=== PATIENT | female | born 1965 | race Caucasian/White ===

== ENCOUNTER 2016-10-20 12:00 | Inpatient (IN) | payer OTHER ==
--- NOTE | 2016-10-17 08:42 | HP ---
DATE: 10/20/16 ANTICIPATED PROCEDURE: 1. ABDOMINAL EXPLORATION. 2. REMOVAL OF ABDOMINOPELVIC MASS. 3. SHE ALSO INCIDENTALLY HAS A LARGE VENTRAL HERNIA. HISTORY OF PRESENT ILLNESS: Patient has large ventral hernia. She has a large tissue mass which could be a fibroid on the vaginal stump and then she has a hollow area overlying the left tube area and overlying a fairly large varicosity. This is all going to require an inspection and treatment as indicated. She has had a bowel prep. Operation is anticipated to take in the 2 hour range. PAST MEDICAL HISTORY: ALLERGIES: NONE. CURRENT MEDICATIONS: Amlodipine, Bystolic, losartan, potassium. SURGERIES: X 2, hysterectomy, oophorectomy. SOCIAL HISTORY: Negative. FAMILY HISTORY: Negative. REVIEW OF SYSTEMS: Hypertension. PHYSICAL EXAMINATION: Vital signs normal. CHEST: Clear. COR: Regular. ABDOMEN: There are multiple lower abdominal hernias. PLAN: Exploration and treatment as indicated requiring completion of removal of any gynecological structures and mass and repair hernia as possible.
[~2016-10-20 12:00] MED LIST: BRIDION 200MG/2ML IV ONE; DIPRIVAN 200 MG/20 ML IV ONE; EPINEPHRINE 1:1000 1 ML AMP IV ONE; Lactated Ringers 1,000 ML IV ONE; Naropin 0.5% 30 ML VIAL IJ ONE; SUBLIMAZE 250 MCG/5 ML IV ONE; Versed 2 MG/2 ML Injection IV ONE; Zemuron 100 MG/10 ML IV ONE; Zofran 4 MG/2 ML VIAL IV ONE
[2016-10-20] MEDS ORDERED: Lactated Ringers 1,000 ML IV SCH (14:30)
[2016-10-20] MEDS ORDERED: CEFAZOLIN 2 GM-D5W BAG** 2 GM/50 ML ML IV SCH (15:00)
[2016-10-20] MEDS ORDERED: Valium 5 MG PO ONE (15:45)
[2016-10-20] MEDS ORDERED: Lactated Ringers 1,000 ML IV ONE ×2 (17:16→18:49)
[2016-10-20] MEDS ORDERED: TORAdol 30 mg Injection ONE (17:54)
[2016-10-20] MEDS ORDERED: xanAX 0.5 MG PO PRN ×3 (18:40→19:19)
[2016-10-20] MEDS ORDERED: MORPHINE SULFATE 4 MG INJ IV PRN ×2 (18:41→19:19)
[2016-10-20] MEDS ORDERED: NORCO 5/325 MG PO PRN (18:42)
[2016-10-20] MEDS ORDERED: Zofran 4 MG/2 ML VIAL IV PRN ×2 (18:42→19:19)
[2016-10-20] MEDS: NORCO 5/325 MG PO PRN (22:55)
[2016-10-21] MEDS: NORCO 5/325 MG PO PRN ×4 (04:28→19:24)
[2016-10-21 09:25] LABS: Collection Type VOID; Ph 5.5 (5-6)
[2016-10-21 09:26] LABS: COMPLETE URINE MICROSCOPIC? YES
[2016-10-21 09:28] LABS: Bacteria MODERATE /HPF (NEGATIVE); Epithelial Cells MODERATE /HPF (FEW); Mucus MANY /HPF (NEGATIVE)
[2016-10-21] MEDS ORDERED: BABY ASPIRIN 81 MG CHEW PO SCH (10:00)
[2016-10-21] MEDS ORDERED: NON-FORMULARY ITEM (Ranitidine Hcl [Zantac] 150 MG) PO SCH (10:00)
[2016-10-21] MEDS ORDERED: NON-FORMULARY ITEM (Escitalopram Oxalate [Lexapro] 20 MG) PO SCH (10:00)
[2016-10-21] MEDS: Mobic 7.5 MG PO SCH (10:04)
[2016-10-21] MEDS: Zocor 10MG PO SCH (10:04)
[2016-10-21] MEDS: ECOTRIN 81 MG PO SCH (10:04)
[2016-10-21] MEDS: Pepcid 20 MG PO SCH (10:04)
[2016-10-21] MEDS: VITAMIN D PO SCH (10:04)
[2016-10-21] MEDS: Lexapro 10 MG PO SCH (10:05)
[2016-10-21] MEDS: NORVASC 5 MG PO SCH (10:08)
[2016-10-21] MEDS: Cozaar 50 MG PO SCH (10:09)
--- NOTE | 2016-10-21 10:59 | OP ---
THIS REPORT WAS AMENDED ON 10/21/16. SURGERY DATE: 10/20/16 SURGERY TIME: 1554 PREOPERATIVE DIAGNOSIS: 1. PELVIC MASS. 2. VENTRAL HERNIA. POSTOPERATIVE DIAGNOSIS: 1. FAIRLY MINIMAL PELVIC MASS. 2. SEVERE ADHESIONS. 3. VENTRAL HERNIA. PROCEDURE: 1. Laparotomy. 2. Excision biopsy of right adnexal mass. 3. Lysis of adhesions. 4. Ventral herniorrhaphy. SURGEON: Shaggy Villalpando M.D. ANESTHESIA: General. COMPLICATIONS: None. CONDITION: Stable. INDICATION: Patient with above stated condition. OPERATIVE PROCEDURE: Taken to surgery. General anesthetic. Routine prep and drape. Midline incision. Severe adhesions. There was a 4" X 4" ventral hernia. This was defined. The abdomen was opened. The pelvis was fairly frozen. The sigmoid looped down behind the bladder, turned back on itself, and then down towards the rectum and it was almost frozen in this position. The right adnexa was able to be visible and there was a 1 cm lesion that was taken meticulously making sure not to get the right ureter or the infundibulopelvic vein. The colon looked satisfactory and although it was really knuckled over and tortuous, it has certainly been functional. Left adnexa area was underneath his colon, could not be seen. The cul-de-sac, a portion of this could be seen satisfactory. Some additional small bowel adhesions/omental adhesions were taken down. There was nothing palpable. There certainly was no 5 cm visible palpable mass. I think there was confusion with the redundant mesentery from the colon and there could have been some interabdominal loculation of fluid, a pseudotumor from peritoneal loculation that had been occurring. Bowels laid back in as organized fashion as possible. There was still one loop stuck against the anterior abdominal wall. Mesh above the incision. This looked like it was laying satisfactory. The ventral hernia was then closed primarily with #1 Prolene. Excess attenuated fascia and excess subq and skin had been taken. Skin closed with kellie. Sterile dressing applied. Patient tolerated the procedure satisfactory. Findings discussed with the family in the waiting room.
[2016-10-21] MEDS ORDERED: Lactated Ringers 1,000 ML IV SCH (12:00)
[2016-10-21 12:47] LABS: Mean Cell Volume 99.2 fl (78-100); Mean Corpuscular Hemoglobin 33.2 pg (26-32); Mean Platelet Volume 8.7 fl (6-9.5); Platelet Count 211 K/mm3 (150-450); Red Blood Count 3.58 M/mm3 (4.1-5.4); Red Cell Distribution Width 12.5 % (11.5-14.0); White Blood Count 11.3 K/mm3 (4.0-10.5)
[2016-10-22] MEDS: NORCO 5/325 MG PO PRN ×2 (03:46→10:11)
[2016-10-22] MEDS: VITAMIN D PO SCH (09:25)
[2016-10-22] MEDS: Pepcid 20 MG PO SCH (09:25)
[2016-10-22] MEDS: Cozaar 50 MG PO SCH (09:25)
[2016-10-22] MEDS: NORVASC 5 MG PO SCH (09:25)
[2016-10-22] MEDS: Mobic 7.5 MG PO SCH (09:25)
[2016-10-22] MEDS: ECOTRIN 81 MG PO SCH (09:26)
[2016-10-22] MEDS: Zocor 10MG PO SCH (09:26)
[2016-10-22] MEDS: Lexapro 10 MG PO SCH (09:26)
[2016-10-22 11:51] VITALS: BP 106/55; PULSE 72; O2SAT 91
== END 2016-10-22 12:50 | disposition home or self-care (01) | DRG 337 ==
LOC: EDSTATUS 14:14 → ICU 14:16 → UNDOADMIN 14:16 → MED SURG 18:20 → ICU 18:29 → MED SURG 18:29
PROVIDERS: ADMIT Surgery; ATTEND Surgery
PROC: 0WJJ0ZZ Inspection of Pelvic Cavity, Open Approach (ICD-10-PCS; principal; 2016-10-20)
PROC: 0DNW0ZZ Release Peritoneum, Open Approach (ICD-10-PCS; 2016-10-20)
PROC: 0UB90ZX Excision of Uterus, Open Approach, Diagnostic (ICD-10-PCS; 2016-10-20)
PROC: 0WQF0ZZ Repair Abdominal Wall, Open Approach (ICD-10-PCS; 2016-10-20)
DX: R19.00 Intra-abdominal and pelvic swelling, mass and lump, unspecified site (principal); K43.9 Ventral hernia without obstruction or gangrene; K66.0 Peritoneal adhesions (postprocedural) (postinfection); I10 Essential (primary) hypertension; Z98.51 Tubal ligation status; E78.5 Hyperlipidemia, unspecified
CPT/HCPCS: 00832; 36415; 64425; 76942; 81000; 85027; 87086; 88341; 94760; J0171; J0690; J1885; J2250; J2405; J2704; J2795; J3010; L0625; A9270-GY

== ENCOUNTER 2021-08-15 19:01 | Observation (INO) | payer OTHER ==
[2021-08-15] MEDS ORDERED: Zofran 4 MG/2 ML VIAL IV ONE (19:31)
[2021-08-15] MEDS ORDERED: Hydromorphone 1 mg/ml Injection IV ONE (19:31)
[2021-08-15] MEDS ORDERED: Sodium Chloride 0.9% 1000 ML 1,000 ML IV STA (19:31)
[2021-08-15] MEDS ORDERED: Hydromorphone 1 mg/ml Injection ONE (19:38)
[2021-08-15] MEDS ORDERED: Sodium Chloride 0.9% 1000 ML 1,000 ML ONE (19:38)
[2021-08-15] MEDS ORDERED: Zofran 4 MG/2 ML VIAL ONE (19:38)
--- NOTE | 2021-08-15 19:41 | ERPHSYRPT ---
- History of Present Illness Time Seen by Provider: 08/15/21 19:30 Historian: patient, family Patient Subjective Stated Complaint: "I think my gallbladder is acting up." Triage Nursing Assessment: Pt c/o of diffuse abd pain since 1030, pt vomited about 30 minutes prior to arrival but denies any other time today, pt denies nausea or diarrhea. pt has had gall stones in the past, pt is hypertensive Physician History: This is an obese 56-year-old white female patient of Dr. Marin who presents with right upper quadrant/epigastric abdominal pain that is acutely presented itself at 1030 this morning and has been persistent but improved throughout the day. She did have an episode of vomiting prior to arrival. Patient denies chest pain. She denies shortness of breath. Patient has no history of cardiac disease. She does have history of hypertension, anxiety and elevated cholesterol. Patient has had gallbladder issues in the past. She has chronic intermittent pain and nausea. Timing/Duration: today, intermittent Activities at Onset: none Abdominal Pain Onset Location: RUQ, epigastric Pain Radiation: no radiation Severity of Pain-Max: moderate Severity of Pain-Current: mild Modifying Factors: Improves With: vomiting Associated Symptoms: nausea, vomiting, No chest pain, No diaphoresis, No headache Previous symptoms: same symptoms as today Allergies/Adverse Reactions: adhesive tape Allergy (Verified 10/20/16 14:30) breaks out if on for long time latex Allergy (Verified 10/20/16 14:30) while wearing gloves hands would start to itch after long periods of time gloves Allergy (Uncoded 10/20/16 14:30) Rash states while wearing gloves dolly Allergy (Uncoded 10/20/16 14:30) Rash Home Medications: ALPRAZolam 0.5 MG [xanAX 0.5 MG] 0.5 mg PO DAILY PRN PRN 12/07/11 [History] Cholecalciferol (Vitamin D3) [Vitamin D] 600 mg PO WEEKLY 10/06/16 [History] Losartan Potassium 50 mg [Cozaar 50 MG] 100 mg PO DAILY 10/06/16 [History] Rosuvastatin Calcium [Crestor] 5 mg PO DAILY 10/06/16 [History] Amlodipine Besylate 5 mg [Norvasc 5 mg] 5 mg PO DAILY 10/07/16 [History] Aspirin 81 gm Chew [Baby Aspirin 81 mg Chew] 81 mg PO DAILY 10/07/16 [History] Carvedilol 6.25 mg [Coreg 6.25 MG] 6.25 mg PO DAILY 08/15/21 [History] Hx Tetanus, Diphtheria Vaccination/Date Given: No Hx Influenza Vaccination/Date Given: No Hx Pneumococcal Vaccination/Date Given: No Travel Risk - International Travel Have you traveled outside of the country in past 3 weeks: No - Coronavirus Screening Are you exhibiting any of the following symptoms?: No Close contact with a COVID-19 positive Pt in past 14-21 Days: No - Vaccine Status Have you recieved a Covid-19 vaccination: Yes 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: [employer] - Vaccination Dates Date of 2cond Vaccination (if applicable): october 2020 - Review of Systems Constitutional: No Symptoms Eyes: No Symptoms Ears, Nose, & Throat: No Symptoms Respiratory: No Symptoms Cardiac: No Symptoms, No Chest Pain Abdominal/Gastrointestinal: Abdominal Pain (Right upper quadrant epigastric), Nausea, Vomiting (X1 episode), No Diarrhea Genitourinary Symptoms: No Symptoms Musculoskeletal: No Symptoms Skin: No Symptoms Neurological: No Symptoms Psychological: No Symptoms Endocrine: No Symptoms Hematologic/Lymphatic: No Symptoms Immunological/Allergic: No Symptoms All Other Systems: Reviewed and Negative - Past Medical History Pertinent Past Medical History: Yes Neurological History: No Pertinent History ENT History: Other Cardiac History: Hypertension Respiratory History: No Pertinent History Endocrine Medical History: No Pertinent History Musculoskeletal History: Arthritis, Osteoarthritis, Osteoporosis GI Medical History: GERD, Hernia History: No Pertinent History Psycho-Social History: Anxiety, Depression Female Reproductive Disorders: Fibroids Other Medical History: Hx of heart murmur - Past Surgical History Past Surgical History: Yes Neuro Surgical History: No Pertinent History Cardiac: No Pertinent History Respiratory: No Pertinent History Gastrointestinal: Hernia Repair Genitourinary: No Pertinent History Musculoskeletal: No Pertinent History Female Surgical History: Section, Hysterectomy, Other Other Surgical History: x two - Social History Smoking Status: Former smoker How long have you smoked: 30 yrs Exposure to second hand smoke: No Drug Use: none Patient Lives Alone: No - Nursing Vital Signs Nursing Vital Signs: Initial Vital Signs Temperature 97.2 F 08/15/21 19:11 Pulse Rate 94 H 08/15/21 19:11 Respiratory Rate 16 08/15/21 19:11 Blood Pressure 204/94 08/15/21 19:11 O2 Sat by Pulse Oximetry 93 L 08/15/21 19:11 Pain Scale Pain Intensity 4 - Physical Exam General Appearance: no apparent distress, alert, anxiety, obese Eye Exam: PERRL/EOMI, eyes nml inspection Ears, Nose, Throat Exam: normal ENT inspection, moist mucous membranes Neck Exam: normal inspection, non-tender, supple, full range of motion Respiratory Exam: normal breath sounds, lungs clear, airway intact, No chest tenderness, No respiratory distress Cardiovascular Exam: regular rate/rhythm, normal heart sounds, normal peripheral pulses Gastrointestinal/Abdomen Exam: soft, normal bowel sounds, tenderness (Mild epigastric and right upper quadrant to palpation), guarding (Mild in the same area to palpation), No rebound Pelvic Exam: not done Rectal Exam: not done Back Exam: normal inspection, normal range of motion, No CVA tenderness, No vertebral tenderness Extremity Exam: normal inspection, normal range of motion, pelvis stable Neurologic Exam: alert, oriented x 3, 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, 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, normal mood/affect, nml cerebellar function, nml station & gait, sensation nml Skin Exam: normal color, warm, dry Lymphatic Exam: No adenopathy SpO2 Interpretation: borderline oxygenation SpO2: 93 O2 Delivery: Room Air - Course Nursing assessment & vital signs reviewed: Yes EKG Interpreted by Me: RATE (78), Sinus Rhythm, NORMAL AXIS, NORMAL INTERVALS, NORMAL QRS, NORMAL ST-T, Other (No acute ischemic changes.) Ordered Tests: Active Orders 24 hr Category Date Time Status EKG-ER Only STAT Care 08/15/21 21:59 Active IV Insertion STAT Care 08/15/21 19:31 Active ABDOMEN AND PELVIS W/0 CONTRAS [CT] Stat Exams 08/15/21 19:32 Taken AMYLASE Stat Lab 08/15/21 19:38 Completed CBC W DIFF Stat Lab 08/15/21 19:38 Completed CMP Stat Lab 08/15/21 19:38 Completed CULTURE,URINE Stat Lab 08/15/21 19:35 Received LIPASE Stat Lab 08/15/21 19:38 Completed Lactic Acid Stat Lab 08/15/21 19:41 Completed TROPONIN Routine Lab 08/15/21 19:30 Completed Transfer Order Routine Transfer 08/15/21 Ordered Medication Summary Discontinued Medications Generic Name Dose Route Start Last Admin Trade Name Vida PRN Reason Stop Dose Admin Al Hydrox/Mg Hydrox/Simethicone Confirm 08/15/21 22:06 Mag Hydrox/Al Hydrox/Simeth 30 Ml Udcup Administered 08/15/21 22:07 Dose 30 ml .ROUTE .STK-MED ONE Hydromorphone HCl 0.5 mg 08/15/21 19:31 08/15/21 19:46 Hydromorphone 1 Mg/1ml Inj 1 Mg/Ml Syringe IV 08/15/21 19:32 0.5 mg STAT ONE Administration Hydromorphone HCl Confirm 08/15/21 19:38 Hydromorphone 1 Mg/1ml Inj 1 Mg/Ml Syringe Administered 08/15/21 19:39 Dose 1 mg .ROUTE .STK-MED ONE Sodium Chloride 1,000 mls @ 999 mls/hr 08/15/21 19:31 08/15/21 19:41 Sodium Chloride 0.9% 1000 Ml IV 08/15/21 20:31 999 mls/hr .Q1H1M STA Administration Sodium Chloride Confirm 08/15/21 19:38 Sodium Chloride 0.9% 1000 Ml Administered 08/15/21 19:39 Dose 1,000 mls @ ud .ROUTE .STK-MED ONE Lidocaine HCl Confirm 08/15/21 22:06 Lidocaine Hcl Viscous 1 Ml Administered 08/15/21 22:07 Dose 30 ml .ROUTE .STK-MED ONE Magnesium Hydroxide 45 ml 08/15/21 21:59 08/15/21 22:11 Mag Hydrx/Alum Hyd/Simeth/Lido 45 Ml Bottle PO 08/15/21 22:00 45 ml STAT ONE Administration Ondansetron HCl 4 mg 08/15/21 19:31 08/15/21 19:42 Ondansetron Hcl 4 Mg/2 Ml Vial IV 08/15/21 19:32 4 mg STAT ONE Administration Ondansetron HCl Confirm 08/15/21 19:38 Ondansetron Hcl 4 Mg/2 Ml Vial Administered 08/15/21 19:39 Dose 4 mg .ROUTE .STK-MED ONE Lab/Rad Data: Laboratory Result Diagrams 08/15/21 19:38 08/15/21 19:38 Laboratory Results 08/15/21 08/15/21 08/15/21 Range/Units 19:41 19:38 19:38 WBC 12.5 H (4.0-10.5) K/mm3 RBC 5.05 (4.1-5.4) M/mm3 Hgb 16.6 H (12.0-16.0) gm/dl Hct 48.5 H (35-47) % MCV 96.0 (78-100) fl MCH 32.9 H (26-32) pg MCHC 34.2 (32-36) g/dl RDW 13.8 (11.5-14.0) % Plt Count 344 (150-450) K/mm3 MPV 9.3 (7.5-11.0) fl Gran % 70.9 H (36.0-66.0) % Eos # (Auto) 0.28 (0-0.5) Absolute Lymphs (auto) 2.39 (1.0-4.6) Absolute Monos (auto) 0.88 (0.0-1.3) Lymphocytes % 19.1 L (24.0-44.0) % Monocytes % 7.0 (0.0-12.0) % Eosinophils % 2.2 (0.00-5.0) % Basophils % 0.8 (0.0-0.4) % Absolute Granulocytes 8.89 H (1.4-6.9) Basophils # 0.10 (0-0.4) Sodium 140 (137-145) mmol/L Potassium 4.4 (3.5-5.1) mmol/L Chloride 101 (98-107) mmol/L Carbon Dioxide 27 (22-30) mmol/L Anion Gap 16.5 H (5-15) MEQ/L BUN 13 (7-17) mg/dL Creatinine 0.61 (0.52-1.04) mg/dL Estimated GFR > 60.0 ML/MIN Glucose 128 H (74-106) mg/dL Lactic Acid 1.8 (0.4-2.0) Calcium 10.8 H (8.4-10.2) mg/dL Total Bilirubin 1.50 H (0.2-1.3) mg/dL AST 22 (14-36) U/L ALT 21 (0-35) U/L Alkaline Phosphatase 70 (38-126) U/L Troponin I (0.000-0.034) ng/mL Serum Total Protein 8.1 (6.3-8.2) g/dL Albumin 5.0 (3.5-5.0) g/dL Amylase 68 (30-110) U/L Lipase 76 (23-300) U/L Urinalys Dipstick Clnc Urine Color (YELLOW) Urine Appearance (CLEAR) Urine pH (5-6) Ur Specific [place] (1.005-1.025) POC Urine Protein Conf (Negative) Urine Ketones (NEGATIVE) Urine Nitrite (NEGATIVE) Urine Bilirubin (NEGATIVE) Urine Urobilinogen (0-1) mg/dL Urine Leukocytes (NEGATIVE) Urine WBC (Auto) (0-5) /HPF Urine RBC (Auto) (0-2) /HPF U Epithel Cells (Auto) (FEW) /HPF Urine Bacteria (Auto) (NEGATIVE) /HPF Urine RBC (0-5) Dajuan/ul Amorphous Crystals (NEGATIVE) /HPF Urine Mucus (Auto) (NEGATIVE) /HPF Ur Culture Indicated? Urine Glucose (NEGATIVE) mg/dL 08/15/21 08/15/21 Range/Units 19:35 19:30 WBC (4.0-10.5) K/mm3 RBC (4.1-5.4) M/mm3 Hgb (12.0-16.0) gm/dl Hct (35-47) % MCV (78-100) fl MCH (26-32) pg MCHC (32-36) g/dl RDW (11.5-14.0) % Plt Count (150-450) K/mm3 MPV (7.5-11.0) fl Gran % (36.0-66.0) % Eos # (Auto) (0-0.5) Absolute Lymphs (auto) (1.0-4.6) Absolute Monos (auto) (0.0-1.3) Lymphocytes % (24.0-44.0) % Monocytes % (0.0-12.0) % Eosinophils % (0.00-5.0) % Basophils % (0.0-0.4) % Absolute Granulocytes (1.4-6.9) Basophils # (0-0.4) Sodium (137-145) mmol/L Potassium (3.5-5.1) mmol/L Chloride (98-107) mmol/L Carbon Dioxide (22-30) mmol/L Anion Gap (5-15) MEQ/L BUN (7-17) mg/dL Creatinine (0.52-1.04) mg/dL Estimated GFR ML/MIN Glucose (74-106) mg/dL Lactic Acid (0.4-2.0) Calcium (8.4-10.2) mg/dL Total Bilirubin (0.2-1.3) mg/dL AST (14-36) U/L ALT (0-35) U/L Alkaline Phosphatase (38-126) U/L Troponin I < 0.012 (0.000-0.034) ng/mL Serum Total Protein (6.3-8.2) g/dL Albumin (3.5-5.0) g/dL Amylase (30-110) U/L Lipase (23-300) U/L Urinalys Dipstick Clnc MAIN LAB Urine Color YELLOW (YELLOW) Urine Appearance CLEAR (CLEAR) Urine pH 6.5 (5-6) Ur Specific [place] >=1.030 (1.005-1.025) POC Urine Protein Conf 100 (Negative) Urine Ketones NEGATIVE (NEGATIVE) Urine Nitrite NEGATIVE (NEGATIVE) Urine Bilirubin NEGATIVE (NEGATIVE) Urine Urobilinogen 0.2 (0-1) mg/dL Urine Leukocytes NEGATIVE (NEGATIVE) Urine WBC (Auto) 3-5 (0-5) /HPF Urine RBC (Auto) 0-2 (0-2) /HPF U Epithel Cells (Auto) RARE (FEW) /HPF Urine Bacteria (Auto) NONE SEEN (NEGATIVE) /HPF Urine RBC TRACE-INTACT (0-5) Dajuan/ul Amorphous Crystals FEW (NEGATIVE) /HPF Urine Mucus (Auto) SLIGHT (NEGATIVE) /HPF Ur Culture Indicated? YES Urine Glucose NEGATIVE (NEGATIVE) mg/dL - Progress Progress: improved, pain not gone completely, re-examined Progress Note: 08/15/21 23:08 CAT scan of the abdomen pelvis shows some free fluid in the pelvis. There is CT evidence of a partial small bowel obstruction with a transition point present. Medical decision making: This patient has a partial small bowel obstruction. My concern is she would return to the emergency department if we discharge her to home. She is not free of pain and she still has some nausea. I feel that it is best place the patient in observation with bowel rest and IV hydration, intravenous pain control and intravenous antiemetics. I spoke with Dr. Rutledge and he agrees. She may require general surgical consultation. Discussed with : Kaylynn Counseled pt/family regarding: lab results, diagnosis, rad results - Departure Departure Disposition: Observation Clinical Impression: Partial small bowel obstruction, Vomiting, Abdominal pain Condition: Stable Critical Care Time: No Referrals: CHASIDY MARIN MD [Primary Care Provider] - Follow up/PCP as directed
[2021-08-15 19:47] LABS: Amourphous Crystal FEW /HPF (NEGATIVE); Appearance CLEAR (CLEAR); Bilirubin NEGATIVE (NEGATIVE); Dipstick done @ ? MAIN LAB; Epithelial Cells RARE /HPF (FEW); Glucose NEGATIVE (NEGATIVE); Ketones NEGATIVE (NEGATIVE); Mucus SLIGHT /HPF (NEGATIVE); Nitrite NEGATIVE (NEGATIVE); Ph 6.5 (5-6); Protein,Urine Dip 100 (Negative); RBC 0-2 /HPF (0-2); RBC TRACE-INTACT Ery/ul (0-5); Specific Gravity >=1.030 (1.005-1.025); Urobilinogen 0.2 mg/dL (0-1)
[2021-08-15 19:47] LABS: Absolute Neutrophil Ct (ANC) 8.89 (1.4-6.9); Eosinophil % 2.2 % (0.00-5.0); Eosinophil (Absolute #) 0.28 (0-0.5); Hematocrit 48.5 % (35-47); Hemoglobin 16.6 gm/dl (12.0-16.0); Lymphocyte (Absolute #) 2.39 (1.0-4.6); Lymphocytes % 19.1 % (24.0-44.0); Mean Corpuscular Hemoglobin 32.9 pg (26-32); Mean Corpuscular Hgb Concent. 34.2 g/dl (32-36); Mean Platelet Volume 9.3 fl (7.5-11.0); Monocyte (Absolute #) 0.88 (0.0-1.3); Neutrophil % 70.9 % (36.0-66.0); Platelet Count 344 K/mm3 (150-450); Red Blood Count 5.05 M/mm3 (4.1-5.4); Red Cell Distribution Width 13.8 % (11.5-14.0); White Blood Count 12.5 K/mm3 (4.0-10.5)
[2021-08-15 19:48] LABS: Bacteria NONE SEEN /HPF (NEGATIVE); Urine Cultured Indicated? YES
[2021-08-15 19:57] LABS: ALKALINE PHOSPHATASE 70 U/L (38-126); AMYLASE 68 U/L (30-110); ANION GAP 16.5 MEQ/L (5-15); BLOOD UREA NITROGEN 13 mg/dL (7-17); CHLORIDE 101 mmol/L (98-107); Calcium 10.8 mg/dL (8.4-10.2); Carbon Dioxide 27 mmol/L (22-30); Creatinine 1 0.61 mg/dL (0.52-1.04); EST GLOMERULAR FILTRATION RATE > 60.0 ML/MIN; Glucose 128 mg/dL (74-106); LIPASE 76 U/L (23-300); Potassium 4.4 mmol/L (3.5-5.1); SGOT/AST 22 U/L (14-36); SGPT/ALT 21 U/L (0-35); SODIUM 140 mmol/L (137-145); Total Protein 8.1 g/dL (6.3-8.2)
[2021-08-15] MEDS ORDERED: GI COCKTAIL 45 ML (Maalox/Lidocaine) PO ONE (21:59)
[2021-08-15] MEDS ORDERED: MAALOX ES 30 ML UNIT DOSE ONE (22:06)
[2021-08-15] MEDS ORDERED: XYLOCAINE HCl Viscous ONE (22:06)
[2021-08-16 00:12] LABS: INFLUENZA A NEGATIVE (NEGATIVE); INFLUENZA B NEGATIVE (NEGATIVE); RESPIRATORY SYNCTIAL VIRUS NEGATIVE (Negative); SARS-CoV-2 Xpert Express NEGATIVE (NEGATIVE)
[2021-08-16] MEDS ORDERED: Zofran 4 MG/2 ML VIAL IV PRN (00:40)
[2021-08-16] MEDS ORDERED: TYLENOL 325 MG PO PRN (00:40)
[2021-08-16] MEDS ORDERED: Sodium Chloride 0.9% 1000 ML 1,000 ML IV SCH (00:40)
[2021-08-16 04:55] LABS: Absolute Neutrophil Ct (ANC) 7.13 (1.4-6.9); Basophil (Absolute #) 0.04 (0-0.4); Eosinophil % 2.2 % (0.00-5.0); Eosinophil (Absolute #) 0.23 (0-0.5); Hematocrit 44.8 % (35-47); Hemoglobin 14.9 gm/dl (12.0-16.0); Lymphocyte (Absolute #) 2.19 (1.0-4.6); Lymphocytes % 20.6 % (24.0-44.0); Mean Corpuscular Hemoglobin 32.6 pg (26-32); Mean Corpuscular Hgb Concent. 33.3 g/dl (32-36); Mean Platelet Volume 8.9 fl (7.5-11.0); Monocyte (Absolute #) 1.06 (0.0-1.3); Neutrophil % 66.8 % (36.0-66.0); Platelet Count 283 K/mm3 (150-450); Red Blood Count 4.57 M/mm3 (4.1-5.4); Red Cell Distribution Width 13.7 % (11.5-14.0); White Blood Count 10.7 K/mm3 (4.0-10.5)
[2021-08-16 05:23] LABS: ALKALINE PHOSPHATASE 50 U/L (38-126); ANION GAP 10.1 MEQ/L (5-15); BLOOD UREA NITROGEN 14 mg/dL (7-17); CHLORIDE 104 mmol/L (98-107); Calcium 9.1 mg/dL (8.4-10.2); Carbon Dioxide 29 mmol/L (22-30); Creatinine 1 0.52 mg/dL (0.52-1.04); EST GLOMERULAR FILTRATION RATE > 60.0 ML/MIN; Glucose 109 mg/dL (74-106); Potassium 3.7 mmol/L (3.5-5.1); SGOT/AST 21 U/L (14-36); SGPT/ALT 17 U/L (0-35); SODIUM 139 mmol/L (137-145); Total Protein 6.6 g/dL (6.3-8.2)
--- NOTE | 2021-08-16 08:40 | PCM.HP ---
History of Present Illness - Chief Complaint Chief Complaint: partial small bowel obstruction History of Present Illness: is a 56 year old female who developed epigastric abdominal pain 2 night ago, she vomited x as well. has had some loose stool, she thought her pain was from her gallbladder as she has known issues. Has seen Dr Villalpando and patient reports 5 prior abdominal surgeries and states she has been told she shouldn't have any more abdominal surgery. she has no pain this morning, when she is up and moving she develops gas and belches, had a loose bowel movement last night. - Review of Systems Constitutional: No Fever, No Chills Respiratory: No Cough, No Short Of Breath Cardiac: No Chest Pain, No Edema, No Syncope Abdominal/Gastrointestinal: Abdominal Pain, Nausea, Vomiting, Diarrhea Genitourinary Symptoms: No Dysuria Skin: No Rash Neurological: No Dizziness, No Focal Weakness, No Sensory Changes All Other Systems: Reviewed and Negative Medications & Allergies Home Medications: Home Medication List ALPRAZolam 0.5 MG [xanAX 0.5 MG] 0.5 mg PO DAILY PRN PRN 12/07/11 [History Confirmed 08/15/21] Cholecalciferol (Vitamin D3) [Vitamin D] 600 mg PO UD 10/06/16 [History Confirmed 08/16/21] Losartan Potassium 50 mg [Cozaar 50 MG] 100 mg PO DAILY 10/06/16 [History Confirmed 08/16/21] Rosuvastatin Calcium [Crestor] 5 mg PO QHS 10/06/16 [History Confirmed 08/16/21] Amlodipine Besylate 5 mg [Norvasc 5 mg] 5 mg PO QHS 10/07/16 [History Confirmed 08/16/21] Aspirin 81 gm Chew [Baby Aspirin 81 mg Chew] 81 mg PO DAILY 10/07/16 [History Confirmed 08/16/21] Carvedilol 6.25 mg [Coreg 6.25 MG] 6.25 mg PO DAILY 08/15/21 [History Confirmed 08/16/21] Trazodone HCl 100 mg PO QHS 08/16/21 [History Confirmed 08/16/21] Vitamin B Complex 1 tab PO WEEKLY 08/16/21 [History Confirmed 08/16/21] Allergies/Adverse Reactions: Allergies Allergy/AdvReac Type Severity Reaction Status Date / Time adhesive tape Allergy Verified 08/16/21 00:41 latex Allergy Verified 08/16/21 00:41 gloves Allergy Rash Uncoded 08/16/21 00:41 dolly Allergy Rash Uncoded 08/16/21 00:41 - Past Medical History Past Medical History: Yes Neurological History: No Pertinent History ENT History: Other Cardiac History: High Cholesterol, Hypertension Respiratory History: No Pertinent History Endocrine Medical History: No Pertinent History Musculoskelatal History: Arthritis, Osteoarthritis, Osteoporosis GI Medical History: GERD, Hernia History: No Pertinent History Pyscho-Social History: Anxiety, Depression Reproductive Disorders: Fibroids Comment: Hx of heart murmur, carotid blockage - being monitored chronically - Female History Are you now?: No - Past Surgical History Past Surgical History: Yes Neuro Surgical History: No Pertinent History Cardiac History: No Pertinent History Respiratory Surgery: No Pertinent History GI Surgical History: Hernia Repair Genitourinary Surgical Hx: No Pertinent History Musculskeletal Surgical Hx: No Pertinent History Female Surgical History: Section, Hysterectomy Other Surgical History: carpal tunnel surgery - Social History Smoking Status: Former smoker How long have you smoked: 30 years Exposure to second hand smoke: Yes Alcohol: None Drug Use: none - Physical Exam Vital Signs: Vital Signs - 24 hr Temp Pulse Resp BP Pulse Ox 08/16/21 07:43 97.4 F 73 16 192/84 92 L 08/16/21 04:00 97.3 F 82 20 160/70 92 L 08/16/21 00:56 98.3 F 71 20 143/68 96 08/16/21 00:05 84 16 147/59 94 L 08/15/21 23:16 71 16 148/62 94 L 08/15/21 23:13 93 L 08/15/21 22:04 82 18 155/62 96 08/15/21 21:02 69 16 161/57 94 L 08/15/21 19:49 71 18 185/73 95 08/15/21 19:11 97.2 F 94 H 16 204/94 93 L General Appearance: no apparent distress, alert Respiratory Exam: normal breath sounds, lungs clear, No respiratory distress Cardiovascular Exam: regular rate/rhythm, normal heart sounds, normal peripheral pulses Gastrointestinal/Abdomen Exam: normal bowel sounds, No tenderness, No distention, No guarding, No rebound Extremity Exam: normal inspection, normal range of motion, pelvis stable Skin Exam: normal color, warm, dry, No rash Results - Labs Lab/Micro Results: Lab Results-Last 24 Hours 08/15/21 08/15/21 08/15/21 Range/Units 19:30 19:35 19:38 WBC 12.5 H (4.0-10.5) K/mm3 RBC 5.05 (4.1-5.4) M/mm3 Hgb 16.6 H (12.0-16.0) gm/dl Hct 48.5 H (35-47) % MCV 96.0 (78-100) fl MCH 32.9 H (26-32) pg MCHC 34.2 (32-36) g/dl RDW 13.8 (11.5-14.0) % Plt Count 344 (150-450) K/mm3 MPV 9.3 (7.5-11.0) fl Gran % 70.9 H (36.0-66.0) % Eos # (Auto) 0.28 (0-0.5) Absolute Lymphs (auto) 2.39 (1.0-4.6) Absolute Monos (auto) 0.88 (0.0-1.3) Lymphocytes % 19.1 L (24.0-44.0) % Monocytes % 7.0 (0.0-12.0) % Eosinophils % 2.2 (0.00-5.0) % Basophils % 0.8 (0.0-0.4) % Absolute Granulocytes 8.89 H (1.4-6.9) Basophils # 0.10 (0-0.4) Sodium (137-145) mmol/L Potassium (3.5-5.1) mmol/L Chloride (98-107) mmol/L Carbon Dioxide (22-30) mmol/L Anion Gap (5-15) MEQ/L BUN (7-17) mg/dL Creatinine (0.52-1.04) mg/dL Estimated GFR ML/MIN Glucose (74-106) mg/dL Lactic Acid (0.4-2.0) Calcium (8.4-10.2) mg/dL Total Bilirubin (0.2-1.3) mg/dL AST (14-36) U/L ALT (0-35) U/L Alkaline Phosphatase (38-126) U/L Troponin I < 0.012 (0.000-0.034) ng/mL Serum Total Protein (6.3-8.2) g/dL Albumin (3.5-5.0) g/dL Amylase (30-110) U/L Lipase (23-300) U/L Urinalys Dipstick Clnc MAIN LAB Urine Color YELLOW (YELLOW) Urine Appearance CLEAR (CLEAR) Urine pH 6.5 (5-6) Ur Specific Sidell >=1.030 (1.005-1.025) POC Urine Protein Conf 100 (Negative) Urine Ketones NEGATIVE (NEGATIVE) Urine Nitrite NEGATIVE (NEGATIVE) Urine Bilirubin NEGATIVE (NEGATIVE) Urine Urobilinogen 0.2 (0-1) mg/dL Urine Leukocytes NEGATIVE (NEGATIVE) Urine WBC (Auto) 3-5 (0-5) /HPF Urine RBC (Auto) 0-2 (0-2) /HPF U Epithel Cells (Auto) RARE (FEW) /HPF Urine Bacteria (Auto) NONE SEEN (NEGATIVE) /HPF Urine RBC TRACE-INTACT (0-5) Dajuan/ul Amorphous Crystals FEW (NEGATIVE) /HPF Urine Mucus (Auto) SLIGHT (NEGATIVE) /HPF Ur Culture Indicated? YES Urine Glucose NEGATIVE (NEGATIVE) mg/dL Influenza Type A Ag (NEGATIVE) Influenza Type B Ag (NEGATIVE) RSV (PCR) (Negative) SARS-CoV-2 (PCR) (NEGATIVE) 08/15/21 08/15/21 08/15/21 Range/Units 19:38 19:41 23:30 WBC (4.0-10.5) K/mm3 RBC (4.1-5.4) M/mm3 Hgb (12.0-16.0) gm/dl Hct (35-47) % MCV (78-100) fl MCH (26-32) pg MCHC (32-36) g/dl RDW (11.5-14.0) % Plt Count (150-450) K/mm3 MPV (7.5-11.0) fl Gran % (36.0-66.0) % Eos # (Auto) (0-0.5) Absolute Lymphs (auto) (1.0-4.6) Absolute Monos (auto) (0.0-1.3) Lymphocytes % (24.0-44.0) % Monocytes % (0.0-12.0) % Eosinophils % (0.00-5.0) % Basophils % (0.0-0.4) % Absolute Granulocytes (1.4-6.9) Basophils # (0-0.4) Sodium 140 (137-145) mmol/L Potassium 4.4 (3.5-5.1) mmol/L Chloride 101 (98-107) mmol/L Carbon Dioxide 27 (22-30) mmol/L Anion Gap 16.5 H (5-15) MEQ/L BUN 13 (7-17) mg/dL Creatinine 0.61 (0.52-1.04) mg/dL Estimated GFR > 60.0 ML/MIN Glucose 128 H (74-106) mg/dL Lactic Acid 1.8 (0.4-2.0) Calcium 10.8 H (8.4-10.2) mg/dL Total Bilirubin 1.50 H (0.2-1.3) mg/dL AST 22 (14-36) U/L ALT 21 (0-35) U/L Alkaline Phosphatase 70 (38-126) U/L Troponin I (0.000-0.034) ng/mL Serum Total Protein 8.1 (6.3-8.2) g/dL Albumin 5.0 (3.5-5.0) g/dL Amylase 68 (30-110) U/L Lipase 76 (23-300) U/L Urinalys Dipstick Clnc Urine Color (YELLOW) Urine Appearance (CLEAR) Urine pH (5-6) Ur Specific Sidell (1.005-1.025) POC Urine Protein Conf (Negative) Urine Ketones (NEGATIVE) Urine Nitrite (NEGATIVE) Urine Bilirubin (NEGATIVE) Urine Urobilinogen (0-1) mg/dL Urine Leukocytes (NEGATIVE) Urine WBC (Auto) (0-5) /HPF Urine RBC (Auto) (0-2) /HPF U Epithel Cells (Auto) (FEW) /HPF Urine Bacteria (Auto) (NEGATIVE) /HPF Urine RBC (0-5) Dajuan/ul Amorphous Crystals (NEGATIVE) /HPF Urine Mucus (Auto) (NEGATIVE) /HPF Ur Culture Indicated? Urine Glucose (NEGATIVE) mg/dL Influenza Type A Ag NEGATIVE (NEGATIVE) Influenza Type B Ag NEGATIVE (NEGATIVE) RSV (PCR) NEGATIVE (Negative) SARS-CoV-2 (PCR) NEGATIVE (NEGATIVE) 08/16/21 08/16/21 Range/Units 04:30 04:30 WBC 10.7 H (4.0-10.5) K/mm3 RBC 4.57 (4.1-5.4) M/mm3 Hgb 14.9 (12.0-16.0) gm/dl Hct 44.8 (35-47) % MCV 98.0 (78-100) fl MCH 32.6 H (26-32) pg MCHC 33.3 (32-36) g/dl RDW 13.7 (11.5-14.0) % Plt Count 283 (150-450) K/mm3 MPV 8.9 (7.5-11.0) fl Gran % 66.8 H (36.0-66.0) % Eos # (Auto) 0.23 (0-0.5) Absolute Lymphs (auto) 2.19 (1.0-4.6) Absolute Monos (auto) 1.06 (0.0-1.3) Lymphocytes % 20.6 L (24.0-44.0) % Monocytes % 10.0 (0.0-12.0) % Eosinophils % 2.2 (0.00-5.0) % Basophils % 0.4 (0.0-0.4) % Absolute Granulocytes 7.13 H (1.4-6.9) Basophils # 0.04 (0-0.4) Sodium 139 (137-145) mmol/L Potassium 3.7 (3.5-5.1) mmol/L Chloride 104 (98-107) mmol/L Carbon Dioxide 29 (22-30) mmol/L Anion Gap 10.1 (5-15) MEQ/L BUN 14 (7-17) mg/dL Creatinine 0.52 (0.52-1.04) mg/dL Estimated GFR > 60.0 ML/MIN Glucose 109 H (74-106) mg/dL Lactic Acid (0.4-2.0) Calcium 9.1 D (8.4-10.2) mg/dL Total Bilirubin 1.30 (0.2-1.3) mg/dL AST 21 (14-36) U/L ALT 17 (0-35) U/L Alkaline Phosphatase 50 (38-126) U/L Troponin I (0.000-0.034) ng/mL Serum Total Protein 6.6 (6.3-8.2) g/dL Albumin 4.0 (3.5-5.0) g/dL Amylase (30-110) U/L Lipase (23-300) U/L Urinalys Dipstick Clnc Urine Color (YELLOW) Urine Appearance (CLEAR) Urine pH (5-6) Ur Specific Sidell (1.005-1.025) POC Urine Protein Conf (Negative) Urine Ketones (NEGATIVE) Urine Nitrite (NEGATIVE) Urine Bilirubin (NEGATIVE) Urine Urobilinogen (0-1) mg/dL Urine Leukocytes (NEGATIVE) Urine WBC (Auto) (0-5) /HPF Urine RBC (Auto) (0-2) /HPF U Epithel Cells (Auto) (FEW) /HPF Urine Bacteria (Auto) (NEGATIVE) /HPF Urine RBC (0-5) Dajuan/ul Amorphous Crystals (NEGATIVE) /HPF Urine Mucus (Auto) (NEGATIVE) /HPF Ur Culture Indicated? Urine Glucose (NEGATIVE) mg/dL Influenza Type A Ag (NEGATIVE) Influenza Type B Ag (NEGATIVE) RSV (PCR) (Negative) SARS-CoV-2 (PCR) (NEGATIVE) - Radiology Impressions Radiology Exams & Impressions: Radiology Procedures Category Date Time Status ABDOMEN AND PELVIS W/0 CONTRAS [CT] Stat Exams 08/15/21 19:32 Taken Assessment/Plan (1) Partial small bowel obstruction Current Visit: Yes Status: Acute Assessment & Plan: keep NPO, has good bowel sounds and benign exam today. ?gallstone ileus, pain sounds biliary in nature on patient description. will consult surgery Code(s): K56.600 - PARTIAL INTESTINAL OBSTRUCTION, UNSPECIFIED TO CAUSE (2) Cholelithiasis Current Visit: Yes Status: Acute (3) Abdominal pain Current Visit: Yes Status: Acute Code(s): R10.9 - UNSPECIFIED ABDOMINAL PAIN
--- NOTE | 2021-08-16 08:52 | XRAY ---
Indication: Right abdomen pain. Nausea and vomiting. Multiple contiguous axial images obtained through the abdomen and pelvis without contrast. Comparison: September 06, 2016. Lung bases clear of infiltrate and effusion. Heart is not enlarged. Mild fluid distended stomach and small bowel loops with fluid leveling. Small bowel loops demonstrate minimal stranding. Ileus versus gastroenteritis offered for clinical consideration. There has been previous ventral hernia repair with interval enlarging infraumbilical ventral hernia at least 12 cm wide with herniated small bowel loops. Herniated bowel loops are now fluid distended with fluid leveling and small free fluid also raises possibility for partial small bowel obstruction. No free air. Normal colonic bowel gas and fecal debris. 22 cm fatty hepatomegaly with tiny perihepatic fluid. 6 mm gallstone. 2.6 cm left upper pole exophytic renal cyst and nonobstructing punctate left renal calculus.. Previous hysterectomy. Pelvis again demonstrates a 5.7 cm soft tissue mass in the expected region of the uterus grossly unchanged. Remaining pancreas, spleen, adrenal glands, kidneys, ureters, and bladder are unremarkable for noncontrast exam. Mild scattered aortoiliac calcifications without AAA. Osseous structures intact with mild degenerative changes throughout the thoracolumbar spine. Impression: 1. Fluid distended stomach and small bowel loops with fluid leveling and stranding, ileus versus gastroenteritis. Partial small bowel obstruction also offered for clinical consideration as there is a large infraumbilical ventral hernia with herniated small bowel loops and free fluid. 2. Grossly stable indeterminant pelvic soft tissue mass. 3. Incidental fatty hepatomegaly, tiny gallstone, small left renal cyst, nonobstructing left renal punctate calculus, and chronic bony findings. Comment: Preliminary interpretation made by [facility]. No critical discrepancy.
[2021-08-16] MEDS: Hydromorphone 1 mg/ml Injection IV PRN ×2 (10:32→23:56)
[2021-08-16] MEDS: Sodium Chloride 0.9% W/ 20 mEq KCl/LITER 1,000 ML IV SCH ×2 (10:34→23:45)
[2021-08-16] MEDS: Cozaar 50 MG PO SCH (10:56)
[2021-08-16] MEDS: Coreg 6.25 MG PO SCH (10:56)
[2021-08-16] MEDS ORDERED: Mylicon 80MG PO PRN (16:47)
[2021-08-16] MEDS ORDERED: NORVASC 5 MG PO SCH (22:00)
[2021-08-16] MEDS ORDERED: Cymbalta 30 MG Capsule PO SCH (22:00)
[2021-08-17 05:04] LABS: Absolute Neutrophil Ct (ANC) 5.13 (1.4-6.9); Basophil (Absolute #) 0.03 (0-0.4); Eosinophil % 3.8 % (0.00-5.0); Eosinophil (Absolute #) 0.36 (0-0.5); Hematocrit 45.4 % (35-47); Hemoglobin 14.8 gm/dl (12.0-16.0); Lymphocyte (Absolute #) 2.93 (1.0-4.6); Lymphocytes % 31.2 % (24.0-44.0); Mean Cell Volume 99.1 fl (78-100); Mean Corpuscular Hemoglobin 32.3 pg (26-32); Mean Corpuscular Hgb Concent. 32.6 g/dl (32-36); Monocyte (Absolute #) 0.93 (0.0-1.3); Monocytes % 9.9 % (0.0-12.0); Neutrophil % 54.8 % (36.0-66.0); Platelet Count 265 K/mm3 (150-450); Red Blood Count 4.58 M/mm3 (4.1-5.4); Red Cell Distribution Width 13.7 % (11.5-14.0); White Blood Count 9.4 K/mm3 (4.0-10.5)
[2021-08-17 05:31] LABS: ALBUMIN 4.1 g/dL (3.5-5.0); ALKALINE PHOSPHATASE 50 U/L (38-126); ANION GAP 12.3 MEQ/L (5-15); BLOOD UREA NITROGEN 8 mg/dL (7-17); CHLORIDE 103 mmol/L (98-107); Calcium 9.1 mg/dL (8.4-10.2); Carbon Dioxide 28 mmol/L (22-30); Creatinine 1 0.56 mg/dL (0.52-1.04); EST GLOMERULAR FILTRATION RATE > 60.0 ML/MIN; Glucose 99 mg/dL (74-106); Potassium 4.3 mmol/L (3.5-5.1); SGOT/AST 19 U/L (14-36); SGPT/ALT 15 U/L (0-35); SODIUM 139 mmol/L (137-145)
[2021-08-17] MEDS ORDERED: APRESOLINE 20 MG/ML INJ IV PRN (06:04)
[2021-08-17] MEDS: Sodium Chloride 0.9% W/ 20 mEq KCl/LITER 1,000 ML IV SCH (06:05)
--- NOTE | 2021-08-17 08:45 | PCM.NOTE ---
Date and Time: 08/17/21 0840 Subjective Assessment: She finished most of her CLD last night but didn't feel well after (although no vomiting). Lots of belching and flatus. She is tired this morning and has epigastric pressure but denies pain. She initially told me she passed a small amount of stool, then said she thought she dreamed that. Has tolerated a full cup of coffee this morning. No nausea. - Review of Systems Constitutional: No Fever Abdominal/Gastrointestinal: No Vomiting Objective Exam General Appearance: no apparent distress, alert, obese Neurologic Exam: oriented x 3, cooperative Skin Exam: normal color, warm, dry, No rash Ears, Nose, Throat Exam: moist mucous membranes Neck Exam: normal inspection Respiratory Exam: normal breath sounds, lungs clear, No crackles/rales, No rhonchi, No wheezing Cardiovascular Exam: regular rate/rhythm, normal heart sounds, No murmur Gastrointestinal/Abdomen Exam: soft, normal bowel sounds, No tenderness, No distention, No mass, No guarding, No rebound Extremity Exam: No pedal edema, No swelling OBJECTIVE DATA Vital Signs: Vital Signs - 24 hr Temp Pulse Resp BP Pulse Ox 08/17/21 07:43 97.5 F 64 16 188/81 94 L 08/17/21 04:00 97.9 F 71 18 131/65 97 08/17/21 00:00 97.7 F 81 20 189/79 97 08/16/21 20:00 97.5 F 70 20 202/79 97 08/16/21 15:52 97.9 F 67 16 167/72 95 08/16/21 11:38 97.9 F 72 16 136/76 93 L Pain Assessment - Last Documented Pain Intensity 0 Pain Scale Used 0-10 Pain Scale Intake and Output: Intake & Output 08/14/21 08/15/21 08/16/21 08/17/21 11:59 11:59 11:59 11:59 Intake Total 0 4744 Output Total 400 800 Balance -400 3944 Weight 106 kg 105.6 kg Lab Results: Lab Results-Last 24 Hours 08/17/21 08/17/21 Range/Units 04:15 04:15 WBC 9.4 (4.0-10.5) K/mm3 RBC 4.58 (4.1-5.4) M/mm3 Hgb 14.8 (12.0-16.0) gm/dl Hct 45.4 (35-47) % MCV 99.1 (78-100) fl MCH 32.3 H (26-32) pg MCHC 32.6 (32-36) g/dl RDW 13.7 (11.5-14.0) % Plt Count 265 (150-450) K/mm3 MPV 9.0 (7.5-11.0) fl Gran % 54.8 (36.0-66.0) % Eos # (Auto) 0.36 (0-0.5) Absolute Lymphs (auto) 2.93 (1.0-4.6) Absolute Monos (auto) 0.93 (0.0-1.3) Lymphocytes % 31.2 (24.0-44.0) % Monocytes % 9.9 (0.0-12.0) % Eosinophils % 3.8 (0.00-5.0) % Basophils % 0.3 (0.0-0.4) % Absolute Granulocytes 5.13 (1.4-6.9) Basophils # 0.03 (0-0.4) Sodium 139 (137-145) mmol/L Potassium 4.3 (3.5-5.1) mmol/L Chloride 103 (98-107) mmol/L Carbon Dioxide 28 (22-30) mmol/L Anion Gap 12.3 (5-15) MEQ/L BUN 8 (7-17) mg/dL Creatinine 0.56 (0.52-1.04) mg/dL Estimated GFR > 60.0 ML/MIN Glucose 99 (74-106) mg/dL Calcium 9.1 (8.4-10.2) mg/dL Total Bilirubin 1.50 H (0.2-1.3) mg/dL AST 19 (14-36) U/L ALT 15 (0-35) U/L Alkaline Phosphatase 50 (38-126) U/L Serum Total Protein 7.0 (6.3-8.2) g/dL Albumin 4.1 (3.5-5.0) g/dL Radiology Exams: Radiology Procedures Category Date Time Status ABDOMEN AND PELVIS W/0 CONTRAS [CT] Stat Exams 08/15/21 19:32 Completed Assessment/Plan (1) Partial small bowel obstruction Current Visit: Yes Status: Acute Assessment & Plan: Appears to be improving. Still on IV fluids. If tolerating po very well, can discharge to home later today. Code(s): K56.600 - PARTIAL INTESTINAL OBSTRUCTION, UNSPECIFIED TO CAUSE (2) Hypertension Current Visit: Yes Status: Acute Qualifiers: Hypertension type: primary hypertension Qualified Code(s): I10 - Essential (primary) hypertension Assessment & Plan: I have added a prn med to her home antihypertensives. Code(s): I10 - ESSENTIAL (PRIMARY) HYPERTENSION (3) Epigastric pain Current Visit: Yes Status: Chronic Assessment & Plan: Acute on chronic. Pt says she has episodes regularly, with increasing frequency over the past 2 years. Would consider cholelithiasis (she does have a small stone) vs gastric v colon etiology. Had a colonoscopy a few years ago; has never had an EGD. F/u with Dr. Blake outpatient. Code(s): R10.13 - EPIGASTRIC PAIN
[2021-08-17] MEDS: Coreg 6.25 MG PO SCH (09:25)
[2021-08-17] MEDS: Cozaar 50 MG PO SCH (09:25)
--- NOTE | 2021-08-17 10:12 | CONS ---
CONSULT DATE: 08/16/2021 This patient was seen for Dr. Francisco Villalpando who is branch operations specialist for our group today. Apparently the consult was called in today and asked that I check on her while I was here doing some outpatient procedures here on 08/16/2021. HISTORY: She is a 56-year-old female a little bit overweight. She had apparently five hernia repairs in the past initially done by Dr. Shaggy Villalpando. She was not sure if one of his sons if one of his sons did hiatal hernia repair or not. Apparently, she had an episode of vomiting yesterday evening and a little bit of some vague low abdominal aches and some aches radiating up to her epigastrium/substernal area. CT scan positive for gallstone and question of partial obstruction. It should be noted that she is not having any vomiting this morning. She had three bowel movements according to the staff. CT scan was reviewed. She had some fluid in the small bowel loops but no specific point of obstruction. Again, she had bowel movements this morning. She does have a little bit of fluid in her multiple chronic hernia sites from her prior repair. She had stable indeterminant pelvic soft tissue density. She had tiny gallstone, small renal cyst, nonobstructing left renal calculus. No free air. Her white count was 10. Her liver function test was within normal limits. She was afebrile. Vital signs stable. Hemoglobin 14.9. PAST MEDICAL HISTORY: Arthritis, osteoporosis, anxiety, depression, hypertension, reflux. She has chronic hernias. PAST SURGICAL HISTORY: section and hysterectomy in the past. She had multiple hernia repairs by Dr. Villalpando in the past with Dr. Shaggy Villalpando or with his sons. HOME MEDICATIONS: Cymbalta, Crestor, Coreg, vitamin B complex, vitamin D3, Norvasc, Cozaar, aspirin, Xanax. ALLERGIES: LATEX. ADHESIVE TAPE. VINI (RASH). GLOVES (RASH). FAMILY HISTORY: Negative in regards to this specific problem. SOCIAL HISTORY: Former smoker. No current alcohol abuse. REVIEW OF SYSTEMS: Fourteen systems reviewed. No chest pain or palpitations other systems negative or noncontributory as above and per preadmission questionnaire. PHYSICAL EXAMINATION: She is afebrile, vital signs stable. GENERAL: No acute distress. Feeling a little better. HEENT: Sclera nonicteric. NECK: No JVD. CHEST: Equal excursion, nonlabored breathing. ABDOMEN: Soft, multiple scars over mid to lower abdomen. She is nontender over the right upper quadrant at the moment. She has some epigastric discomfort radiating up to her substernal area. She had some low abdominal aches previously but not having symptoms today. Her abdomen is very soft. No rebound. No guarding. Chronic recurrent hernias. EXTREMITIES: No cyanosis. NEURO: Alert, moving extremities grossly symmetrically. PSYCH: Appropriate mood and affect. IMPRESSION: I discussed with the patient and her family at the bedside. She has a very complex abdominal wall multiple hernias. She needs complex reconstruction. It would take some time. The gallbladder has a very tiny gallstone but there did not appear to be any fluid or any significant induration around the gallbladder. She has acute cholecystitis. Her liver function tests are not elevated so no emergent surgery necessary. Whether these symptoms are related being backed up from her chronic hernia with her small bowel loops in them or whether she has got some gastritis, reflux or ulcer disease or whether a little bit of it is related to some chronic dysfunction. Either way it is not going to be a simple solution. I have discussed with Dr. Francisco Villalpando as he is branch operations specialist for our group today to see what his thoughts are, if she could drink some liquids and possibly get out of here and follow up with outpatient work up of these chronic problems. After I discussed with him, he felt that would be a good idea to try her on some liquids and advance her diet if she tolerates it and she can follow up as an outpatient. She will likely would need quite a bit of OR time to decide for definitive hernia repair of recurrent hernia and cholecystectomy in the same setting. If she is able to advance diet and be released, he will readdress any surgical intervention.
[2021-08-17 13:11] VITALS: O2SAT 95
[2021-08-17 15:53] VITALS: BP 152/67; PULSE 69
--- NOTE | 2021-08-17 15:55 | PCM.DS ---
Discharge Summary Date of Admission: 08/16/21 00:35 Admitting Physician: SUSAN JACKMAN Consults: Consults on Case 08/16/21 08:40 Consult Surgery ROUTINE Primary Care Provider: CHASIDY MARIN TERENCE Allergies Allergies adhesive tape Allergy (Verified 08/16/21 00:41) breaks out if on for long time latex Allergy (Verified 08/16/21 00:41) while wearing gloves hands would start to itch after long periods of time gloves Allergy (Uncoded 08/16/21 00:41) Rash states while wearing gloves dolly Allergy (Uncoded 08/16/21 00:41) Rash Hospital Summary - Hospital Course Hospital Course: Pt is a 56 yo female pt of Dr. Marin' who was admitted to ER with several days of abdominal pain, vomiting, and diarrhea. Ct scan abd/pelvis showed air-fluid levels consistent with partial SBO. Pt has hx 5 abdominal surgeries. Her diet was increased slowly and she has started feeling better. She tolerated a bland diet well today and would like to go home. She will f/u with Dr. Marin in 1 week. She has hx gallbladder issues and has at least [address] scan. She has had several episodes of similar pain, so those could be related to the gallbladder or gastric in origin (pt has never had EGD). - Vitals & Intake/Output Vital Signs: Vital Signs Temperature 98.1 F 08/17/21 12:00 Pulse Rate 63 08/17/21 12:00 Respiratory Rate 16 08/17/21 12:00 Blood Pressure 126/61 08/17/21 12:00 O2 Sat by Pulse Oximetry 95 08/17/21 12:00 Intake & Output: Intake & Output 08/15/21 08/16/21 08/17/21 08/18/21 11:59 11:59 11:59 11:59 Intake Total 0 5224 340 Output Total 400 800 Balance -400 4424 340 Weight 106 kg 105.6 kg - Lab Result Diagrams: 08/17/21 04:15 08/17/21 04:15 Lab Results-Last 24 Hrs: Lab Results-Last 24 Hours 08/17/21 08/17/21 Range/Units 04:15 04:15 WBC 9.4 (4.0-10.5) K/mm3 RBC 4.58 (4.1-5.4) M/mm3 Hgb 14.8 (12.0-16.0) gm/dl Hct 45.4 (35-47) % MCV 99.1 (78-100) fl MCH 32.3 H (26-32) pg MCHC 32.6 (32-36) g/dl RDW 13.7 (11.5-14.0) % Plt Count 265 (150-450) K/mm3 MPV 9.0 (7.5-11.0) fl Gran % 54.8 (36.0-66.0) % Eos # (Auto) 0.36 (0-0.5) Absolute Lymphs (auto) 2.93 (1.0-4.6) Absolute Monos (auto) 0.93 (0.0-1.3) Lymphocytes % 31.2 (24.0-44.0) % Monocytes % 9.9 (0.0-12.0) % Eosinophils % 3.8 (0.00-5.0) % Basophils % 0.3 (0.0-0.4) % Absolute Granulocytes 5.13 (1.4-6.9) Basophils # 0.03 (0-0.4) Sodium 139 (137-145) mmol/L Potassium 4.3 (3.5-5.1) mmol/L Chloride 103 (98-107) mmol/L Carbon Dioxide 28 (22-30) mmol/L Anion Gap 12.3 (5-15) MEQ/L BUN 8 (7-17) mg/dL Creatinine 0.56 (0.52-1.04) mg/dL Estimated GFR > 60.0 ML/MIN Glucose 99 (74-106) mg/dL Calcium 9.1 (8.4-10.2) mg/dL Total Bilirubin 1.50 H (0.2-1.3) mg/dL AST 19 (14-36) U/L ALT 15 (0-35) U/L Alkaline Phosphatase 50 (38-126) U/L Serum Total Protein 7.0 (6.3-8.2) g/dL Albumin 4.1 (3.5-5.0) g/dL Micro Results-Entire Visit: Microbiology 08/15/21 19:35 Urine Culture - Final Urine, Void <10K NORMAL SKIN CIARA PROBABLE SKIN CONTAMINANT - Radiology Exams Ordered Rad Exams-Entire Visit: Radiology Procedures Category Date Time Status ABDOMEN AND PELVIS W/0 CONTRAS [CT] Stat Exams 08/15/21 19:32 Completed Discharge Exam General Appearance: no apparent distress, alert, obese, other (exam done at 08:30 this morning) Neurologic Exam: oriented x 3, cooperative Eye Exam: eyes nml inspection Ears, Nose, Throat Exam: moist mucous membranes Neck Exam: normal inspection Respiratory Exam: normal breath sounds, lungs clear, No crackles/rales, No rhonchi, No wheezing Cardiovascular Exam: regular rate/rhythm, normal heart sounds, No murmur Gastrointestinal/Abdomen Exam: soft, normal bowel sounds, No tenderness, No distention, No mass, No guarding, No rebound Extremity Exam: normal inspection, No pedal edema, No swelling Skin Exam: normal color, warm, dry, No rash Final Diagnosis/Problem List - Final Discharge Diagnosis/Problem (1) Partial small bowel obstruction Current Visit: Yes Status: Resolved Code(s): K56.600 - PARTIAL INTESTINAL OBSTRUCTION, UNSPECIFIED TO CAUSE (2) Hypertension Current Visit: Yes Status: Chronic Assessment & Plan: had some acute worsening in hospital, but in the interest of not causing post hospital hypotension, will avoid increasing her meds. Code(s): I10 - ESSENTIAL (PRIMARY) HYPERTENSION (3) Epigastric pain Current Visit: Yes Status: Chronic Assessment & Plan: intermittent chronic episodes. Could be related to adhesions, vs gallbladder, vs gastric. Code(s): R10.13 - EPIGASTRIC PAIN - Discharge Disposition: Home, Self-Care Condition: Good Prescriptions: Continue ALPRAZolam 0.5 MG [xanAX 0.5 MG] 0.5 mg PO DAILY PRN PRN PRN Reason: Anxiety Rosuvastatin Calcium [Crestor] 20 mg PO QHS Losartan Potassium 50 mg [Cozaar 50 MG] 100 mg PO DAILY Cholecalciferol (Vitamin D3) [Vitamin D] 600 mg PO UD Aspirin 81 gm Chew [Baby Aspirin 81 mg Chew] 81 mg PO DAILY Amlodipine Besylate 5 mg [Norvasc 5 mg] 5 mg PO QHS Carvedilol 6.25 mg [Coreg 6.25 MG] 6.25 mg PO BID Vitamin B Complex 1 tab PO WEEKLY Trazodone HCl 100 mg PO QHS Chlorthalidone 12.5 mg PO DAILY Duloxetine HCl 30 mg [Cymbalta 30 MG Capsule] 60 mg PO HS Follow up with: CHASIDY MARIN MD [Primary Care Provider] - BOOGIE THOMPSON MD [ACTIVE STAFF] -
== END 2021-08-17 17:00 | disposition home or self-care (01) ==
LOC: ED 19:01 → MED SURG 08-16 00:35
PROVIDERS: ADMIT General Practice; ATTEND Family Medicine
DX: K56.600 Partial intestinal obstruction, unspecified as to cause (principal); K80.20 Calculus of gallbladder without cholecystitis without obstruction; R10.13 Epigastric pain; I10 Essential (primary) hypertension; E78.00 Pure hypercholesterolemia, unspecified; K21.9 Gastro-esophageal reflux disease without esophagitis; Z87.19 Personal history of other diseases of the digestive system; Z79.899 Other long term (current) drug therapy; Z87.891 Personal history of nicotine dependence; Z20.828 Contact with and (suspected) exposure to other viral communicable diseases
CPT/HCPCS: 0241U; 36000; 36415; 74176; 80053; 81015; 82150; 83605; 83690; 84484; 85025; 87086; 93005; 96360; 96374; 96375; 99285; G0378; J1170; J2405; A9270-GY

== ENCOUNTER 2022-07-11 15:59 | Emergency (ER) | payer OTHER ==
--- NOTE | 2022-07-11 17:19 | XRAY ---
Indication: Headache. Elevated blood pressure. Multiple contiguous axial images obtained through the head without contrast. Comparison: January 21, 2015 Normal appearing brain parenchyma, ventricles, and bony calvarium. Visualized paranasal sinuses and mastoid air cells are clear. Impression: Continued normal CT head without contrast exam.
[2022-07-11 17:25] LABS: Appearance Turbid (Clear); Bilirubin Negative (Negative); Blood NHT (Negative); Glucose, Urine Negative (Negative); Ketones Trace (Negative); Leukocyte Esterase Large (Negative); Nitrite Negative (Negative); Protein,Urine Dip 30 (Negative); Specific Gravity 1.025 (1.005-1.030); Urobilinogen 0.2 mg/dL (0.2)
[2022-07-11] MEDS ORDERED: CLONIDINE 0.1 MG TABLET PO ONE (17:40)
[2022-07-11] MEDS ORDERED: CLONIDINE 0.1 MG TABLET ONE (17:43)
[2022-07-11 17:48] LABS: BASOPHIL % 1.1 % (0.0-0.4); Basophil (Absolute #) 0.08 x10^3/uL (0-0.4); Eosinophil % 4.5 % (0.00-5.0); Eosinophil (Absolute #) 0.32 x10^3/uL (0-0.5); Hematocrit 38.4 % (35-47); Hemoglobin 13.4 g/dL (12.0-16.0); IMMATURE GRAN # 0.03 x10^3u/L (0.00-0.03); IMMATURE GRAN % 0.4 % (0.00-0.4); Lymphocyte (Absolute #) 2.28 x10^3/uL (1.0-4.6); Lymphocytes % 32.2 % (24.0-44.0); Mean Cell Volume 99.2 fL (78-100); Mean Corpuscular Hemoglobin 34.6 pg (26-32); Mean Corpuscular Hgb Concent. 34.9 g/dL (32-36); Mean Platelet Volume 9.1 fL (7.5-11.0); Monocyte (Absolute #) 0.58 x10^3/uL (0.0-1.3); Monocytes % 8.2 % (0.0-12.0); Neutrophil % 53.6 % (36.0-66.0); Platelet Count 265 x10^3/uL (150-450); Red Blood Count 3.87 x10^6/uL (4.1-5.4); Red Cell Distribution Width 12.8 % (11.5-14.0); White Blood Count 7.1 x10^3/uL (4.0-10.5)
[2022-07-11 18:01] LABS: ADD URINE CULTURE? YES (NO); Bacteria Moderate /HPF (None Seen); Epithelial Cells Few /HPF (None Seen); Hyaline Casts NONE SEEN /LPF (0-2); WBC 51-100 /HPF (0-5)
[2022-07-11 18:01] LABS: ALBUMIN 4.5 g/dL (3.5-5.0); ALKALINE PHOSPHATASE 71 U/L (38-126); ANION GAP 12.7 MEQ/L (5-15); BLOOD UREA NITROGEN 10 mg/dL (7-17); CHLORIDE 105 mmol/L (98-107); Calcium 9.5 mg/dL (8.4-10.2); Carbon Dioxide 27 mmol/L (22-30); Creatinine 1 0.66 mg/dL (0.52-1.04); EST GLOMERULAR FILTRATION RATE > 60.0 ML/MIN; Glucose 97 mg/dL (74-106); Potassium 3.7 mmol/L (3.5-5.1); SGOT/AST 28 U/L (14-36); SGPT/ALT 26 U/L (0-35); SODIUM 141 mmol/L (137-145); Total Protein 7.3 g/dL (6.3-8.2)
[2022-07-11 18:02] LABS: PROTIME 10.9 SECONDS (9.4-12.5); PTT 25.8 SECONDS (25.1-36.5)
--- NOTE | 2022-07-11 18:13 | ERPHSYRPT ---
- History of Present Illness Source: patient, other (Pt's mother) Exam Limitations: no limitations Patient Subjective Stated Complaint: PT states "My blood pressure has been running high, my ears are bothering me, I am congested. My kidney DrJennifer changed my blood pressure meds that my heart doctor put me on." Triage Nursing Assessment: PT presented alert and oriented X 3,s kin pwd. Pt ambulates iwth an upright steady gait, able to speak in clear full sentences. pt slightly tachypneic. Physician History: 57 yo WF w increased BP x 3days. Pt states that she has a mild headache and mild dyspnea. Pt sees a cosmetologist apprentice and a religious assistant who are managing her hypertensive meds. She denies focal weakness/chest pain/N/V/D/melena/hematochezia. Pt denies h/o VA/CAD/VA. Timing/Duration: other (3days) Modifying Factors: Improves With: nothing Associated Symptoms: denies symptoms, shortness of breath Allergies/Adverse Reactions: adhesive tape Allergy (Verified 08/16/21 00:41) breaks out if on for long time latex Allergy (Verified 08/16/21 00:41) while wearing gloves hands would start to itch after long periods of time gloves Allergy (Uncoded 08/16/21 00:41) Rash states while wearing gloves dolly Allergy (Uncoded 08/16/21 00:41) Rash Home Medications: ALPRAZolam 0.5 MG [xanAX 0.5 MG] 0.5 mg PO DAILY PRN PRN 12/07/11 [History] Cholecalciferol (Vitamin D3) [Vitamin D] 600 mg PO UD 10/06/16 [History] Rosuvastatin Calcium [Crestor] 20 mg PO QHS 10/06/16 [History] Aspirin 81 gm Chew [Baby Aspirin 81 mg Chew] 81 mg PO DAILY 10/07/16 [History] Carvedilol [Coreg ] 12.5 mg PO BID 08/15/21 [History] Duloxetine HCl 30 mg [Cymbalta 30 MG Capsule] 60 mg PO HS 08/16/21 [Hi story] Trazodone HCl 100 mg PO QHS 08/16/21 [History] Cefpodoxime Proxetil 200 mg [Vantin 200 mg] 200 mg PO DAILY 07/11/22 [History] Valsartan 320 mg PO DAILY 07/11/22 [History] Hx Tetanus, Diphtheria Vaccination/Date Given: No Hx Influenza Vaccination/Date Given: No Hx Pneumococcal Vaccination/Date Given: No Immunizations Up to Date: Yes Travel Risk - International Travel Have you traveled outside of the country in past 3 weeks: No - Coronavirus Screening Are you exhibiting any of the following symptoms?: No Close contact with a COVID-19 positive Pt in past 14-21 Days: No - Vaccine Status Have you recieved a Covid-19 vaccination: Yes 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: [employer] - Vaccination Dates Date of 2cond Vaccination (if applicable): June 2020 - Review of Systems Constitutional: No Symptoms Eyes: No Symptoms Ears, Nose, & Throat: No Symptoms Respiratory: No Symptoms, Dyspnea Cardiac: No Symptoms Abdominal/Gastrointestinal: No Symptoms Genitourinary Symptoms: No Symptoms Musculoskeletal: No Symptoms Skin: No Symptoms Neurological: No Symptoms Psychological: No Symptoms Endocrine: No Symptoms Hematologic/Lymphatic: No Symptoms Immunological/Allergic: No Symptoms - Past Medical History Pertinent Past Medical History: Yes Neurological History: No Pertinent History ENT History: Other Cardiac History: High Cholesterol, Hypertension, Other Respiratory History: Other Endocrine Medical History: No Pertinent History Musculoskeletal History: Fibromyalgia, Osteoarthritis GI Medical History: GERD, Hernia History: No Pertinent History Psycho-Social History: Anxiety, Depression Female Reproductive Disorders: Fibroids Other Medical History: PMHX INCLUDES ABOVE WITH PATIENT REPORTING HX OF REACTION TO MORPHINE AFTER A SURGERY AND NOW USES INHALER PRN, HEART MURMUR, - Past Surgical History Past Surgical History: Yes Neuro Surgical History: No Pertinent History Cardiac: No Pertinent History Respiratory: No Pertinent History Gastrointestinal: Hernia Repair Genitourinary: No Pertinent History Musculoskeletal: No Pertinent History Female Surgical History: Section, Hysterectomy Other Surgical History: carpal tunnel surgery - Social History Smoking Status: Former smoker How long have you smoked: 30 years Exposure to second hand smoke: Yes Drug Use: none Patient Lives Alone: No - Nursing Vital Signs Nursing Vital Signs: Initial Vital Signs Temperature 98.5 F 07/11/22 16:09 Pulse Rate 90 07/11/22 16:09 Respiratory Rate 22 07/11/22 16:09 Blood Pressure 211/99 07/11/22 16:09 O2 Sat by Pulse Oximetry 97 07/11/22 16:09 Pain Scale Pain Intensity 4 Hypertensive - Physical Exam General Appearance: no apparent distress Eye Exam: PERRL/EOMI, eyes nml inspection Ears, Nose, Throat Exam: normal ENT inspection, TMs normal, pharynx normal, moist mucous membranes Neck Exam: normal inspection, non-tender, supple, full range of motion, No meningismus, No mass, No Brudzinski, No Kernig's Respiratory Exam: normal breath sounds, lungs clear, airway intact, No respiratory distress Cardiovascular Exam: regular rate/rhythm, normal heart sounds, normal peripheral pulses, capillary refill <2 sec, No murmur Gastrointestinal/Abdomen Exam: soft, normal bowel sounds, No tenderness Back Exam: normal inspection, normal range of motion, No CVA tenderness, No vertebral tenderness Extremity Exam: normal inspection, normal range of motion Neurologic Exam: alert, oriented x 3, cooperative, 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 II-XII nml as tested, normal mood/affect, nml cerebellar function, nml station & gait, sensation nml, No motor deficits, No sensory deficit Skin Exam: normal color, warm, dry Lymphatic Exam: No adenopathy SpO2 Interpretation: normal SpO2: 97 O2 Delivery: Room Air - Course Nursing assessment & vital signs reviewed: Yes EKG Interpreted by Me: RATE (NSR/Rate71/Normal QT-QTc/No acute ST segment changes/Normal Twaves) - CT Exams Head CT Interpretation: Discussed w/radiologist (CT head neg) Ordered Tests: Active Orders 24 hr Category Date Time Status EKG-ER Only STAT Care 07/11/22 17:01 Completed HEAD WITHOUT CONTRAST [CT] Stat Exams 07/11/22 17:03 Completed CBC W DIFF Stat Lab 07/11/22 17:35 Completed CMP Stat Lab 07/11/22 17:35 Completed CULTURE,URINE Stat Lab 07/11/22 17:11 Received PROTIME WITH INR Stat Lab 07/11/22 17:35 Completed PTT Stat Lab 07/11/22 17:35 Completed TROPONIN Q4H Lab 07/11/22 17:35 Completed UA W/RFX UR CULTURE Stat Lab 07/11/22 17:11 Completed Medication Summary Discontinued Medications Generic Name Dose Route Start Last Admin Trade Name Freq PRN Reason Stop Dose Admin Clonidine 0.2 mg 07/11/22 17:40 07/11/22 17:46 Clonidine Hcl 0.1 Mg Tablet PO 07/11/22 17:41 0.2 mg STAT ONE Administration Clonidine Confirm 07/11/22 17:43 Clonidine Hcl 0.1 Mg Tablet Administered 07/11/22 17:44 Dose 0.2 mg .ROUTE .STK-MED ONE Lab/Rad Data: Laboratory Result Diagrams 07/11/22 17:35 07/11/22 17:35 Laboratory Results 07/11/22 07/11/22 07/11/22 Range/Units 17:35 17:35 17:35 WBC (4.0-10.5) x10^3/uL RBC (4.1-5.4) x10^6/uL Hgb (12.0-16.0) g/dL Hct (35-47) % MCV (78-100) fL MCH (26-32) pg MCHC (32-36) g/dL RDW (11.5-14.0) % Plt Count (150-450) x10^3/uL MPV (7.5-11.0) fL Gran % (36.0-66.0) % Immature Gran % (Auto) (0.00-0.4) % Nucleat RBC Rel Count (0.00-0.1) % Eos # (Auto) (0-0.5) x10^3/uL Immature Gran # (Auto) (0.00-0.03) x10^3u/L Absolute Lymphs (auto) (1.0-4.6) x10^3/uL Absolute Monos (auto) (0.0-1.3) x10^3/uL Absolute Nucleated RBC (0.00-0.01) x10^3u/L Lymphocytes % (24.0-44.0) % Monocytes % (0.0-12.0) % Eosinophils % (0.00-5.0) % Basophils % (0.0-0.4) % Absolute Granulocytes (1.4-6.9) x10^3/uL Basophils # (0-0.4) x10^3/uL PT 10.9 (9.4-12.5) SECONDS INR 1.00 (0.8-3.0) APTT 25.8 (25.1-36.5) SECONDS Sodium 141 (137-145) mmol/L Potassium 3.7 (3.5-5.1) mmol/L Chloride 105 (98-107) mmol/L Carbon Dioxide 27 (22-30) mmol/L Anion Gap 12.7 (5-15) MEQ/L BUN 10 (7-17) mg/dL Creatinine 0.66 (0.52-1.04) mg/dL Estimated GFR > 60.0 ML/MIN Glucose 97 (74-106) mg/dL Calcium 9.5 (8.4-10.2) mg/dL Total Bilirubin 0.90 (0.2-1.3) mg/dL AST 28 (14-36) U/L ALT 26 (0-35) U/L Alkaline Phosphatase 71 (38-126) U/L Troponin I < 0.012 (0.000-0.034) ng/mL Serum Total Protein 7.3 (6.3-8.2) g/dL Albumin 4.5 (3.5-5.0) g/dL Urine Color (Yellow) Urine Appearance (Clear) Urine pH (4.6-8.0) Ur Specific Kyle (1.005-1.030) Urine Protein (Negative) Urine Glucose (UA) (Negative) mg/dL Urine Ketones (Negative) Urine Blood (Negative) Urine Nitrite (Negative) Urine Bilirubin (Negative) Urine Urobilinogen (0.2) mg/dL Ur Leukocyte Esterase (Negative) U Hyaline Cast (Auto) (0-2) /LPF Urine Microscopic RBC (0-5) /HPF Urine Microscopic WBC (0-5) /HPF Ur Epithelial Cells (None Seen) /HPF Calcium Oxalate Crystal (None Seen) /HPF Urine Bacteria (None Seen) /HPF Urine Culture Reflexed (NO) 07/11/22 07/11/22 Range/Units 17:35 17:11 WBC 7.1 (4.0-10.5) x10^3/uL RBC 3.87 L (4.1-5.4) x10^6/uL Hgb 13.4 (12.0-16.0) g/dL Hct 38.4 (35-47) % MCV 99.2 (78-100) fL MCH 34.6 H (26-32) pg MCHC 34.9 (32-36) g/dL RDW 12.8 (11.5-14.0) % Plt Count 265 (150-450) x10^3/uL MPV 9.1 (7.5-11.0) fL Gran % 53.6 (36.0-66.0) % Immature Gran % (Auto) 0.4 (0.00-0.4) % Nucleat RBC Rel Count 0.0 (0.00-0.1) % Eos # (Auto) 0.32 (0-0.5) x10^3/uL Immature Gran # (Auto) 0.03 (0.00-0.03) x10^3u/L Absolute Lymphs (auto) 2.28 (1.0-4.6) x10^3/uL Absolute Monos (auto) 0.58 (0.0-1.3) x10^3/uL Absolute Nucleated RBC 0.00 (0.00-0.01) x10^3u/L Lymphocytes % 32.2 (24.0-44.0) % Monocytes % 8.2 (0.0-12.0) % Eosinophils % 4.5 (0.00-5.0) % Basophils % 1.1 (0.0-0.4) % Absolute Granulocytes 3.80 (1.4-6.9) x10^3/uL Basophils # 0.08 (0-0.4) x10^3/uL PT (9.4-12.5) SECONDS INR (0.8-3.0) APTT (25.1-36.5) SECONDS Sodium (137-145) mmol/L Potassium (3.5-5.1) mmol/L Chloride (98-107) mmol/L Carbon Dioxide (22-30) mmol/L Anion Gap (5-15) MEQ/L BUN (7-17) mg/dL Creatinine (0.52-1.04) mg/dL Estimated GFR ML/MIN Glucose (74-106) mg/dL Calcium (8.4-10.2) mg/dL Total Bilirubin (0.2-1.3) mg/dL AST (14-36) U/L ALT (0-35) U/L Alkaline Phosphatase (38-126) U/L Troponin I (0.000-0.034) ng/mL Serum Total Protein (6.3-8.2) g/dL Albumin (3.5-5.0) g/dL Urine Color Dark Yellow A (Yellow) Urine Appearance Turbid A (Clear) Urine pH 5.0 (4.6-8.0) Ur Specific Kyle 1.025 (1.005-1.030) Urine Protein 30 (Negative) Urine Glucose (UA) Negative (Negative) mg/dL Urine Ketones Trace A (Negative) Urine Blood NHT (Negative) Urine Nitrite Negative (Negative) Urine Bilirubin Negative (Negative) Urine Urobilinogen 0.2 (0.2) mg/dL Ur Leukocyte Esterase Large A (Negative) U Hyaline Cast (Auto) NONE SEEN (0-2) /LPF Urine Microscopic RBC 6-10 A (0-5) /HPF Urine Microscopic WBC 51-100 A (0-5) /HPF Ur Epithelial Cells Few (None Seen) /HPF Calcium Oxalate Crystal 6-10 A (None Seen) /HPF Urine Bacteria Moderate A (None Seen) /HPF Urine Culture Reflexed YES (NO) - Progress Progress: improved Progress Note: 07/11/22 19:07 Nursing note and vital signs reviewed No food or housing insecurities noted All labs and CT result reviewed and shared w pt BP decreased w 0.2 po clonidine Pt to f/u w her religious assistant No focal weakness on serial neuro exams Pt is a full code 07/11/22 20:39 Counseled pt/family regarding: lab results, diagnosis, need for follow-up, rad results - Departure Departure Disposition: Home Clinical Impression: Hypertensive urgency, UTI (urinary tract infection) Condition: Stable Critical Care Time: No Referrals: CHASIDY MARIN MD [Primary Care Provider] - Follow up/PCP as directed Instructions: Urinary Tract Infection, Adult (DC), Malignant Hypertension (DC) Additional Instructions: Stop Vantin and start Bactrim twice a day for 5 days Follow up with your religious assistant for further blood pressure control Return to ER for focal weakness, worsening chest pain, or temperature greater than 100.5 Prescriptions: Smz/Tmp Ds Tablet [Bactrim Ds Tablet] 1 tab PO Q12H 5 Days #10 tablet
[2022-07-11 19:08] VITALS: BP 159/90; PULSE 60
[2022-07-11 19:12] VITALS: O2SAT 97
== END 2022-07-11 19:27 | disposition home or self-care (01) ==
LOC: ED 15:59
DX: I16.0 Hypertensive urgency (principal); I10 Essential (primary) hypertension; N39.0 Urinary tract infection, site not specified; R51.9 Headache, unspecified; R06.00 Dyspnea, unspecified; E78.5 Hyperlipidemia, unspecified; Z79.899 Other long term (current) drug therapy
CPT/HCPCS: 36000; 36415; 70450; 80053; 81001; 84484; 85025; 85610; 85730; 87077; 87086; 87186; 93005; 99284; A9270-GY

== ENCOUNTER 2024-06-27 12:58 | Emergency (ER) | payer OTHER ==
--- NOTE | 2024-06-27 13:01 | ERPHSYRPT ---
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 Patient states that she fell onto her right knee and twisted her right ankle. She did not hit her head. She did not lose consciousness. She was not dizzy and is not dizzy. She has no other areas of pain. Patient has a history of anxiety, hypertension, hyperlipidemia and osteoarthritis. Occurred: just prior to arrival Quality: constant, aching Severity of Pain-Max: moderate Severity of Pain-Current: moderate Lower Extremities Pain: knee: right (Skin abrasion anterior right knee), ankle: right Modifying Factors: Improves With: movement Associated Symptoms: other (Hurts to bear weight but can do so) Allergies/Adverse Reactions: adhesive tape Allergy (Verified 08/16/21 00:41) breaks out if on for long time latex Allergy (Verified 08/16/21 00:41) while wearing gloves hands would start to itch after long periods of time morphine Allergy (Verified 06/27/24 13:13) Shortness of Breath dolly Allergy (Uncoded 08/16/21 00:41) Rash Home Medications: ALPRAZolam 0.5 MG [xanAX 0.5 MG] 0.5 mg PO DAILY PRN PRN 12/07/11 [History] Rosuvastatin Calcium [Crestor] 20 mg PO QHS 10/06/16 [History] Carvedilol [Coreg ] 12.5 mg PO BID 08/15/21 [History] Duloxetine HCl 30 mg [Cymbalta 30 MG Capsule] 60 mg PO HS 08/16/21 [History] Trazodone HCl 100 mg PO QHS 08/16/21 [History] Valsartan 320 mg PO DAILY 07/11/22 [History] Hx Tetanus, Diphtheria Vaccination/Date Given: No Hx Influenza Vaccination/Date Given: No Hx Pneumococcal Vaccination/Date Given: No Travel Risk - International Travel Have you traveled outside of the country in past 3 weeks: No - Emerging Infectious Disease Are you exhibiting symptoms associated with any current EIDs: No - Review of Systems Constitutional: No Symptoms Eyes: No Symptoms Ears, Nose, & Throat: No Symptoms Respiratory: No Symptoms Cardiac: No Symptoms Abdominal/Gastrointestinal: No Symptoms Musculoskeletal: Fall, Injury (Right ankle and right knee) Skin: Other (Skin abrasion anterior right knee) Neurological: No Symptoms Psychological: No Symptoms Endocrine: No Symptoms Hematologic/Lymphatic: No Symptoms Immunological/Allergic: No Symptoms All Other Systems: Reviewed and Negative - Past Medical History Neurological History: No Pertinent History Cardiac History: Hypertension Respiratory History: No Pertinent History Endocrine Medical History: Other Musculoskeletal History: Osteoarthritis Other Medical History: BONE SPURS IN THE R HEEL. SEEING THE DOCTOR FOR KIDNEY PROBLEMS. HEART MURMUR. NARROWING OF CAROTID ARTERIES. 5 HERNIA SURGERIES, HYSTERECTOMY. PAIN IN B KNEES. - Past Surgical History Past Surgical History: Yes Neuro Surgical History: No Pertinent History Cardiac: No Pertinent History Respiratory: No Pertinent History Gastrointestinal: Hernia Repair Genitourinary: No Pertinent History Musculoskeletal: No Pertinent History Female Surgical History: Section, Hysterectomy Other Surgical History: carpal tunnel surgery - Social History Smoking Status: Former smoker How long have you smoked: 30 years Exposure to second hand smoke: Yes Drug Use: none Patient Lives Alone: No - Nursing Vital Signs Nursing Vital Signs: Initial Vital Signs Blood Pressure 217/84 06/27/24 13:04 O2 Sat by Pulse Oximetry 96 06/27/24 13:04 Pain Scale Pain Intensity 8 - Physical Exam General Appearance: no apparent distress, alert, anxiety Eyes, Ears, Nose, Throat Exam: normal ENT inspection, moist mucous membranes Neck Exam: normal inspection, non-tender, supple, full range of motion Cardiovascular/Respiratory Exam: chest non-tender, no respiratory distress Gastrointestinal/Abdominal Exam: non-tender Back Exam: normal inspection, normal range of motion, No CVA tenderness, No vertebral tenderness Hips Exam: bilateral: non-tender, normal inspection, normal range of motion, no evidence of injury Legs Exam: bilateral leg: non-tender, normal inspection, normal range of motion, no evidence of injury Knees Exam: right knee: soft tissue tenderness (Skin abrasion anterior), swelling, left knee: non-tender, normal inspection, no evidence of injury, bilateral knee: normal range of motion Ankle Exam: right ankle: soft tissue tenderness, left ankle: non-tender, normal inspection, no evidence of injury, bilateral ankle: normal range of motion Foot Exam: bilateral foot: non-tender, normal inspection, normal range of motion, no evidence of injury Neuro/Tendon Exam: normal sensation, normal motor functions, normal tendon functions, responds to pain, no evidence tendon injury Mental Status Exam: alert, oriented x 3, cooperative Skin Exam: abrasion (Inferior skin abrasion right knee) SpO2 Interpretation: normal O2 Delivery: Room Air - Course Nursing assessment & vital signs reviewed: Yes Ordered Tests: Active Orders 24 hr Category Date Time Status ANKLE (3 VIEWS) Stat Exams 06/27/24 13:30 Completed KNEE (3 VIEWS) Stat Exams 06/27/24 13:30 Completed Medication Summary Generic Name Dose Route Start Last Admin Trade Name Freq PRN Reason Stop Dose Admin Clonidine 0.1 mg 06/27/24 14:38 Clonidine Hcl 0.1 Mg Tablet PO 06/27/24 14:39 STAT ONE Discontinued Medications Generic Name Dose Route Start Last Admin Trade Name Freq PRN Reason Stop Dose Admin Ibuprofen 600 mg 06/27/24 13:30 06/27/24 13:43 Ibuprofen 600 Mg Tablet PO 06/27/24 13:31 600 mg STAT ONE Administration Ibuprofen Confirm 06/27/24 13:34 Ibuprofen 600 Mg Tablet Administered 06/27/24 13:35 Dose 600 mg .ROUTE .STK-MED ONE Oxycodone/Acetaminophen 1 tab 06/27/24 13:30 06/27/24 13:47 Oxycodone Hcl/Apap 5 Mg/325 Mg Tablet PO 06/27/24 13:31 1 tab STAT STA Administration Oxycodone/Acetaminophen Confirm 06/27/24 13:34 Oxycodone Hcl/Apap 5 Mg/325 Mg Tablet Administered 06/27/24 13:35 Dose 1 tab .ROUTE .STK-MED ONE - Progress Progress: improved, pain not gone completely Progress Note: 06/27/24 13:59 My medical decision making and the assignment of low complexity to this patient's medical issue today is based on review of the patient's past medical history, review the patient's medication list, reviewed patient drug allergy list, history present illness and physical findings on examination. The workup in this patient includes x-ray of the patient's right knee and right ankle. Differential diagnosis includes but is not limited to fracture/dislocation/sprai n right knee and right ankle, skin abrasion right knee 06/27/24 14:38 The patient thinks that she forgot to take her blood pressure medication today 06/27/24 14:41 The x-ray of the right knee was interpreted by the radiologist and I reviewed the impression. The impression states degenerative changes. No new or acute abnormalities. The x-ray of the right ankle was interpreted by the radiologist and I reviewed the impression. There is lateral soft tissue swelling and no acute fracture or dislocation. Counseled pt/family regarding: diagnosis, need for follow-up, rad results Medical Desision Making - Independent Historian Additional History obtained from: Spouse - Diagnostic Testing Diagnostic test were ordered, analyzed, and reviewed by me: Yes Radiological Interpretation: Reviewed by me, Teleradiologist Report - Risk of complications The pt has a mod risk of morbidity or mortality based on: Need for prescription drug management - Departure Departure Disposition: Home Clinical Impression: Hypertension, Abrasion of knee, right, Contusion of right knee, Right ankle sprain Condition: Stable Critical Care Time: No Referrals: CHASIDY MARIN MD [Primary Care Provider] - Follow up/PCP as directed Additional Instructions: Take your medications as prescribed. Keep the abrasion site clean daily with soap and water. You may apply antibiotic ointment of choice to the right knee abrasion 1-2 times a day. Monitor your blood pressure closely and take your blood pressure medication when you get home today. Call your primary care provider, today, 06/27/2024, to make arrangements for follow-up appointment for further evaluation and management. If there were no contraindications, you may add ibuprofen 600 mg orally with food 3 times a day for the next 5 days to help with pain control Prescriptions: Oxycodone HCl/Acetaminophen [Percocet 5-325 mg Tablet] 1 each PO Q8H PRN PRN #6 tablet MDD 3 PRN Reason: Moderate To Severe Pain
[2024-06-27 13:18] VITALS: TEMP 97.3
[2024-06-27] MEDS ORDERED: PERCOCET TABLET 5/325MG ONE (13:34)
[2024-06-27] MEDS ORDERED: MOTRIN 600 MG ONE (13:34)
[2024-06-27] MEDS: MOTRIN 600 MG PO ONE (13:43)
[2024-06-27] MEDS: PERCOCET TABLET 5/325MG PO STA (13:47)
--- NOTE | 2024-06-27 14:29 | XRAY ---
Indication: Status post fall. Comparison: None 3 view right ankle demonstrates osteopenia, tiny posterior/plantar heel spurs, and mild lateral soft tissue swelling. No other bony, articular, or soft tissue abnormalities.
--- NOTE | 2024-06-27 14:29 | XRAY ---
Indication: Status post fall. Comparison: April 18, 2019 3 view right knee again demonstrates osteopenia, minimal medial/lateral degenerative joint space narrowing, and small fabella. No new/acute abnormalities.
[2024-06-27] MEDS ORDERED: CLONIDINE 0.1 MG TABLET ONE (14:40)
[2024-06-27] MEDS: CLONIDINE 0.1 MG TABLET PO ONE (14:41)
[2024-06-27 15:06] VITALS: RESP 18
[2024-06-27 15:39] VITALS: BP 169/70; PULSE 61; O2SAT 96
== END 2024-06-27 15:38 | disposition home or self-care (01) ==
LOC: ED 12:58
DX: S93.401A Sprain of unspecified ligament of right ankle, initial encounter (principal); S80.01XA Contusion of right knee, initial encounter; S80.211A Abrasion, right knee, initial encounter; W01.0XXA Fall on same level from slipping, tripping and stumbling without subsequent striking against object, initial encounter; Y93.G1 Activity, food preparation and clean up; Y99.0 Civilian activity done for income or pay; I10 Essential (primary) hypertension; E78.5 Hyperlipidemia, unspecified; Z79.891 Long term (current) use of opiate analgesic; Z79.899 Other long term (current) drug therapy
CPT/HCPCS: 73562; 73610; 99283; A9270-GY